=== PATIENT | female | born 1945 | race Caucasian/White ===

== ENCOUNTER 2016-12-10 11:39 | Inpatient (IN) | payer OTHER, MEDICARE ==
[2016-12-10] MEDS ORDERED: ONDANSETRON 4 MG/2 ML VIAL IVP ONE (12:06)
[2016-12-10] MEDS ORDERED: NS 1,000 ML IV ONE ×2 (12:06)
--- NOTE | 2016-12-10 12:10 | EDPHY ---
H & P Time Seen by Provider: 12/10/16 11:48 HPI/ROS: CHIEF COMPLAINT: Diarrhea HISTORY OF PRESENT ILLNESS: Patient is sent from Dr. Dunia Hernández office for possible recurrent Clostridium difficile. She was diagnosed earlier this year on November 21 and finished a complete course of metronidazole with some improvement, but over the last week has been having worsening diarrhea. Multiple episodes associated with severe abdominal cramping prior to going to the bathroom, with resolution of her abdominal cramping when she has diarrhea. No blood or melena. 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 REVIEW OF SYSTEMS: Eye: no change in vision ENT: no sore throat Cardiac: no chest pain or syncope Pulmonary: no cough or SOB Abdomen: HPI Musculoskeletal: no back pain Skin: Some skin lesions where they have been frozen off. Neuro: no headache Constitutional: no fever : no urinary symptoms A comprehensive 10 point review of systems is otherwise negative aside from elements mentioned in the history of present illness. PAST MEDICAL HISTORY: Includes hypothyroid. Fibromyalgia and squamous cell skin cancer, diverticulitis, hysterectomy. History and physical dated 05/17/2016 personally reviewed by myself. Social history: Nonsmoker, here with her . General Appearance: Alert and conversant, cooperative. Eyes: No scleral icterus. ENT, Mouth: Dry mucous membranes. Respiratory: Normal respiratory effort, breath sounds equal, lungs are clear to auscultation. Cardiovascular: Regular rate and rhythm. Gastrointestinal: Abdomen is soft and non tender. Neurological: Alert and oriented x3. Normally conversant. Face symmetric, normal movement and sensation in all extremities. Skin: Several superficial wounds on her lower extremities where skin lesions were removed but no cellulitis or erythema. Musculoskeletal: No peripheral edema and no joint swelling. Psychiatric: Not agitated. Emergency Department course/MDM: Normal saline 2 L IV for clinical dehydration, 4 mg IV Zofran for nausea. Stool for Clostridium difficile. Likely outpatient metronidazole failure, considered admission for IV hydration and oral vancomycin. Discussed with Dr. Duval at 1:06 p.m., oral vancomycin 125mg , IV fluids, Clostridium difficile testing. Smoking Status: Never smoked Constitutional: Initial Vital Signs Temperature (C) 37.3 C 12/10/16 11:42 Heart Rate 115 H 12/10/16 11:42 Respiratory Rate 16 12/10/16 11:42 Blood Pressure 135/64 H 12/10/16 11:42 O2 Sat (%) 91 L 12/10/16 11:42 O2 Delivery Mode Nasal Cannula O2 (L/minute) 2 Allergies/Adverse Reactions: codeine [Codeine] Allergy (Intermediate, Verified 05/17/16 15:04) NAUSEA Penicillins Allergy (Intermediate, Verified 05/17/16 13:41) Hives fish derived [Fish derived] Allergy (Unknown, Verified 05/17/16 15:04) Home Medications: Medication Instructions Recorded Ascorbic Acid [Vitamin C 500 mg 1,000 mg PO DAILY 05/17/16 (*)] Carboxymethylcellulose Sodium 1 drop EACHEYE HS 05/17/16 [Refresh Liquigel] Estriol Biest (8:2) 12mg/G Cream 2 earline TP DAILY 05/17/16 Herbals/Supplements -Info Only 1 ea PO DAILY 05/17/16 Levothyroxine [Synthroid 75 mcg 75 mcg PO DAILY06 05/17/16 (*)] Liothyronine Sodium [Cytomel 25 25 mcg PO DAILY 05/17/16 mcg (*)] Progesterone,Micronized 200 mg PO HS 05/17/16 [Progesterone] Mineral Oil/Petrolatum,White 3.5 gm OP HS 12/10/16 [Tears Naturale Pm Eye Oint] Medical Decision Making Differential Diagnosis: Differential for abdominal pain and diarrhea considered including but not limited to ischemic colitis, infectious diarrhea, Clostridium difficile toxin, GI bleed, viral gastroenteritis. - Data Points Laboratory Results: Laboratory Results 12/10/16 11:55 12/10/16 11:55 12/10/16 11:55 WBC 11.45 H 10^3/uL (3.80-9.50) RBC 4.57 10^6/uL (4.18-5.33) Hgb 13.8 g/dL (12.6-16.3) Hct 41.0 % (38.0-47.0) MCV 89.7 fL (81.5-99.8) MCH 30.2 pg (27.9-34.1) MCHC 33.7 g/dL (32.4-36.7) RDW 13.3 % (11.5-15.2) Plt Count 215 10^3/uL (150-400) MPV 9.6 fL (8.7-11.7) Neut % (Auto) 90.4 H % (39.3-74.2) Lymph % (Auto) 2.4 L % (15.0-45.0) [place] % (Auto) 6.6 % (4.5-13.0) Eos % (Auto) 0.1 L % (0.6-7.6) Baso % (Auto) 0.2 L % (0.3-1.7) Nucleat RBC Rel Count 0.0 % (0.0-0.2) Absolute Neuts (auto) 10.36 H 10^3/uL (1.70-6.50) Absolute Lymphs (auto) 0.27 L 10^3/uL (1.00-3.00) Absolute Monos (auto) 0.76 10^3/uL (0.30-0.80) Absolute Eos (auto) 0.01 L 10^3/uL (0.03-0.40) Absolute Basos (auto) 0.02 10^3/uL (0.02-0.10) Absolute Nucleated RBC 0.00 10^3/uL (0-0.01) Immature Gran % 0.3 % (0.0-1.1) Immature Gran # 0.03 10^3/uL (0.00-0.10) Sodium 140 mEq/L (134-144) Potassium 4.0 mEq/L (3.5-5.2) Chloride 103 mEq/L (97-110) Carbon Dioxide 25 mEq/l (22-31) Anion Gap 12 mEq/L (8-16) BUN 17 mg/dL (7-23) Creatinine 0.7 mg/dL (0.6-1.0) Estimated GFR > 60 Glucose 108 H mg/dL (70-100) Calcium 9.0 mg/dL (8.5-10.4) Medications Given: Discontinued Medications Sodium Chloride (Ns) 1,000 mls @ 0 mls/hr IV ONCE ONE PRN Reason: Wide Open Stop: 12/10/16 12:07 Last Admin: 12/10/16 12:10 Dose: 1,000 mls Sodium Chloride (Ns) 1,000 mls @ 0 mls/hr IV ONCE ONE PRN Reason: Wide Open Stop: 12/10/16 12:07 Last Admin: 12/10/16 12:35 Dose: 1,000 mls Ondansetron HCl (Zofran) 4 mg IVP EDNOW ONE Stop: 12/10/16 12:07 Last Admin: 12/10/16 12:13 Dose: 4 mg Vancomycin HCl (Vancocin Oral Liquid) 125 mg PO EDNOW ONE PRN Reason: Protocol Stop: 12/10/16 13:10 Last Admin: 12/10/16 13:45 Dose: 125 mg Departure - Departure Disposition: [facility] Acute Clinical Impression: Diarrhea Condition: Good
[2016-12-10 12:50] LABS: % IMMATURE GRANULYOCYTES 0.3 % (0.0-1.1); ABSOLUTE IMMATURE GRANULOCYTES 0.03 10^3/uL (0.00-0.10); ADD DIFF? NO; ADD MORPH? NO; ADD SCAN? NO; ATYPICAL LYMPHOCYTE FLAG 10 (0-99); FRAGMENT RBC FLAG 0 (0-99); HEMOGLOBIN 13.8 g/dL (12.6-16.3); LEFT SHIFT FLG 10 (0-99); LIPEMIA HEMOLYSIS FLAG 80 (0-99); MEAN CELL HEMOGLOBIN 30.2 pg (27.9-34.1); MEAN CELL HEMOGLOBIN CONCENTR. 33.7 g/dL (32.4-36.7); MEAN CELL VOLUME 89.7 fL (81.5-99.8); MEAN PLATELET VOLUME 9.6 fL (8.7-11.7); PLATELET CLUMPS FLAG 10 (0-99); PLATELET COUNT 215 10^3/uL (150-400); RED BLOOD CELL COUNT 4.57 10^6/uL (4.18-5.33); RED CELL DISTRIBUTION WIDTH 13.3 % (11.5-15.2)
[2016-12-10 13:06] LABS: ANION GAP 12 mEq/L (8-16); CARBON DIOXIDE 25 mEq/l (22-31); CHLORIDE 103 mEq/L (97-110); CREATININE 0.7 mg/dL (0.6-1.0); GLOMERULAR FILTRATION RATE > 60; GLUCOSE 108 mg/dL (70-100); SODIUM 140 mEq/L (134-144)
[2016-12-10] MEDS ORDERED: VANCOMYCIN 125 MG/2.5 ML UDL PO ONE (13:09)
[2016-12-10] MEDS ORDERED: PROMETHAZINE HCL 25 MG TAB PO PRN (13:32)
[2016-12-10] MEDS ORDERED: PROMETHAZINE HCL 25 MG/ML INJ IVP PRN (13:32)
[2016-12-10] MEDS ORDERED: ONDANSETRON 4 MG/2 ML VIAL IVP PRN (13:32)
[2016-12-10] MEDS ORDERED: ONDANSETRON DISINTEGRATING 4 MG TAB PO PRN (13:32)
[2016-12-10] MEDS ORDERED: NS 1,000 ML IV SCH (13:45)
--- NOTE | 2016-12-10 14:06 | PDGENHP ---
History and Physical - Chief Complaint Acute fever - History of Present Illness PCP: Dr. Cam Primary aids social worker: Dr. Hernández HPI: 71-year-old female presenting with acute fever characterized as a temperature of a 102 degrees F with associated loose comma frequent bowel movements as well as vomiting and abdominal cramping. The patient reports that her onset of symptoms was approximately the 21 of November and have been of persistent duration thereafter. Fevers were not present until the day of presentation but the other symptoms were. The patient reports that on 11/21/2016 , the patient had a positive C diff PCR and she was initiated on 10 days of metronidazole. The patient reports that she was adherent to this medication but did not particularly changed her diarrheal or abdominal cramping symptoms. Consequently, she sought medical attention at her gastroenterology office. She does report that the eye cramping seems to be reduced by bowel movements and the fever seemed to be alleviated by vomiting. She has otherwise not made any medication changes and she reports that her oral intake of solids and liquids has been reduced on the day of this presentation. History Information - Allergies/Home Medication List Allergies/Adverse Reactions: codeine [Codeine] Allergy (Intermediate, Verified 05/17/16 15:04) NAUSEA Penicillins Allergy (Intermediate, Verified 05/17/16 13:41) Hives fish derived [Fish derived] Allergy (Unknown, Verified 05/17/16 15:04) Home Medications: Ascorbic Acid [Vitamin C 500 mg (*)] 1,000 mg PO DAILY 05/17/16 [Last Taken ] Carboxymethylcellulose Sodium [Refresh Liquigel] 1 drop EACHEYE HS 05/17/16 [ Last Taken 12/09/16] Estriol Biest (8:2) 12mg/G Cream 2 earline TP DAILY 05/17/16 [Last Taken 12/09/16] Herbals/Supplements -Info Only 1 ea PO DAILY 05/17/16 [Last Taken 05/17/16] Levothyroxine [Synthroid 75 mcg (*)] 75 mcg PO DAILY06 05/17/16 [Last Taken ] Liothyronine Sodium [Cytomel 25 mcg (*)] 25 mcg PO DAILY 05/17/16 [Last Taken ] Progesterone,Micronized [Progesterone] 200 mg PO HS 05/17/16 [Last Taken ] Mineral Oil/Petrolatum,White [Tears Naturale Pm Eye Oint] 3.5 gm OP HS 12/10/16 [Last Taken 12/09/16] I have personally reviewed and updated: family history, medical history, social history, surgical history - Past Medical History Additional medical history: Hypothyroidism. Fibromyalgia. Skin cancer. Cellulitis in May 2016. C diff PCR positive on 11/21/2016 - Surgical History Reports: hysterectomy - Family History Additional family history: No recent sick family contacts, patient's mother had venous thromboembolism, her father coronary artery disease - Social History Smoking Status: Never smoked Alcohol Use: None Drug Use: None Additional social history: Normally independent in ADLs, lives with Review of Systems ROS: 10pt was reviewed & negative except for what was stated in HPI & below Constitutional: Reports: fever Gastrointestinal: Reports: vomitting, abdominal pain, diarrhea, nausea Physical Exam Temp Pulse Resp BP Pulse Ox 37.3 C 107 H 16 138/70 H 98 12/10/16 11:42 12/10/16 12:37 12/10/16 12:37 12/10/16 12:37 12/10/16 12:37 Constitutional: no apparent distress, not in pain, chronically ill appearing, No uncomfortable Eyes: PERRL, anicteric sclera, EOMI Ears, Nose, Mouth, Throat: hearing normal, ears appear normal, no oral mucosal ulcers, other (Tacky mucous membranes) Cardiovascular: tachycardia, No systolic murmur, No irregularly irregular, No edema Respiratory: no respiratory distress, no rales or rhonchi, clear to auscultation Gastrointestinal: soft, non-tender abdomen, no palpable masses, distension ( Mild to moderately), No normoactive bowel sounds (Hyperactive bowel sounds) Skin: other (Small skin lesions with mild surrounding erythema on the bilateral anterior shins without any confluent induration or ecchymoses) Neurologic: AAOx3, sensation intact bilaterally, No weakness Psychiatric: interacting appropriately, not anxious, not encephalopathic, thought process linear Lab Data & Imaging Review 12/10/16 11:55 12/10/16 11:55 WBC 11.45 10^3/uL (3.80-9.50) H 12/10/16 11:55 RBC 4.57 10^6/uL (4.18-5.33) 12/10/16 11:55 Hgb 13.8 g/dL (12.6-16.3) 12/10/16 11:55 Hct 41.0 % (38.0-47.0) 12/10/16 11:55 MCV 89.7 fL (81.5-99.8) 12/10/16 11:55 MCH 30.2 pg (27.9-34.1) 12/10/16 11:55 MCHC 33.7 g/dL (32.4-36.7) 12/10/16 11:55 RDW 13.3 % (11.5-15.2) 12/10/16 11:55 Plt Count 215 10^3/uL (150-400) 12/10/16 11:55 MPV 9.6 fL (8.7-11.7) 12/10/16 11:55 Neut % (Auto) 90.4 % (39.3-74.2) H 12/10/16 11:55 Lymph % (Auto) 2.4 % (15.0-45.0) L 12/10/16 11:55 [place] % (Auto) 6.6 % (4.5-13.0) 12/10/16 11:55 Eos % (Auto) 0.1 % (0.6-7.6) L 12/10/16 11:55 Baso % (Auto) 0.2 % (0.3-1.7) L 12/10/16 11:55 Nucleat RBC Rel Count 0.0 % (0.0-0.2) 12/10/16 11:55 Absolute Neuts (auto) 10.36 10^3/uL (1.70-6.50) H 12/10/16 11:55 Absolute Lymphs (auto) 0.27 10^3/uL (1.00-3.00) L 12/10/16 11:55 Absolute Monos (auto) 0.76 10^3/uL (0.30-0.80) 12/10/16 11:55 Absolute Eos (auto) 0.01 10^3/uL (0.03-0.40) L 12/10/16 11:55 Absolute Basos (auto) 0.02 10^3/uL (0.02-0.10) 12/10/16 11:55 Absolute Nucleated RBC 0.00 10^3/uL (0-0.01) 12/10/16 11:55 Immature Gran % 0.3 % (0.0-1.1) 12/10/16 11:55 Immature Gran # 0.03 10^3/uL (0.00-0.10) 12/10/16 11:55 Sodium 140 mEq/L (134-144) 12/10/16 11:55 Potassium 4.0 mEq/L (3.5-5.2) 12/10/16 11:55 Chloride 103 mEq/L (97-110) 12/10/16 11:55 Carbon Dioxide 25 mEq/l (22-31) 12/10/16 11:55 Anion Gap 12 mEq/L (8-16) 12/10/16 11:55 BUN 17 mg/dL (7-23) 12/10/16 11:55 Creatinine 0.7 mg/dL (0.6-1.0) 12/10/16 11:55 Estimated GFR > 60 12/10/16 11:55 Glucose 108 mg/dL (70-100) H 12/10/16 11:55 Calcium 9.0 mg/dL (8.5-10.4) 12/10/16 11:55 Assessment & Plan Assessment: 71-year-old female presenting with acute, persistent C difficile colitis and systemic inflammatory response syndrome Plan: 1. C difficile colitis. Acute, persistent, new problem this provider, further workup indicated. Evidenced by positive PCR on 11/21/2016 in the setting of abdominal symptoms and diarrhea -given the patient's symptoms persisted despite metronidazole therapy, I would consider this a persistent C difficile infection as opposed to a recurrent 1 -discussed with Selwyn Benitez in the emergency department, we both agree that initiation of vancomycin orally is appropriate at this time, 125 mg q.6 -patient will require 2 weeks of therapy -recommend Infectious Disease consultation to help facilitate continuity of care as well as management decisions, id consult placed -recommend improving oral intake of solids and liquids -as needed antiemetics ordered -continue IV fluids -get repeat CDiff PCR to ensure that symptoms continue to be attributable to this process 2. Systemic inflammatory response syndrome. Evidenced by a reported fever of 102 degrees F in the outpatient setting plus tachycardia, most likely secondary to a combination of hypovolemia and persisted infxn -continue IV fluids -if patient becomes hypotensive or is persistently febrile, will check lactic acid level and declare this to be sepsis 3. Fibromyalgia. Chronic, continue patient's home medications once reconciled 4. Skin ulcers. Reviewed outside records including 09/11/2016 [facility] note by Dr. Moris Bauman, reported that patient would not be on subsequent antibiotics but should be treated for possible contact dermatitis -no evidence of worsening wounds Diet. Regular with smoothies supplements Code. Full Disposition. Anticipated discharge is 12/11/2016, pending further workup and treatment of conditions outlined above
[2016-12-10] MEDS: ACETAMINOPHEN 325 MG TAB PO PRN ×2 (16:14→20:08)
[2016-12-10] MEDS: PROGESTERONE,MICR 100 MG CAP PO SCH (20:08)
[2016-12-10] MEDS: CARBOXYMETHYLCELLULOSE SODIUM EACHEYE SCH (20:19)
[2016-12-10] MEDS: PETROLAT,WHT/MIN OIL/SOD CHL 3.5 GM OPHT.OINT EACHEYE SCH (22:06)
[2016-12-11] MEDS: ACETAMINOPHEN 325 MG TAB PO PRN ×2 (00:30→21:59)
[2016-12-11 05:05] LABS: % IMMATURE GRANULYOCYTES 0.3 % (0.0-1.1); ABSOLUTE IMMATURE GRANULOCYTES 0.02 10^3/uL (0.00-0.10); ADD DIFF? NO; ADD MORPH? NO; ADD SCAN? NO; ATYPICAL LYMPHOCYTE FLAG 0 (0-99); FRAGMENT RBC FLAG 0 (0-99); HEMATOCRIT 32.6 % (38.0-47.0); HEMOGLOBIN 11.1 g/dL (12.6-16.3); LEFT SHIFT FLG 50 (0-99); LIPEMIA HEMOLYSIS FLAG 90 (0-99); MEAN CELL HEMOGLOBIN 31.4 pg (27.9-34.1); MEAN CELL VOLUME 92.4 fL (81.5-99.8); MEAN PLATELET VOLUME 9.6 fL (8.7-11.7); PLATELET CLUMPS FLAG 10 (0-99); PLATELET COUNT 155 10^3/uL (150-400); RED BLOOD CELL COUNT 3.53 10^6/uL (4.18-5.33); RED CELL DISTRIBUTION WIDTH 13.5 % (11.5-15.2)
[2016-12-11 05:17] LABS: ALANINE AMINOTRANSFERASE 28 IU/L (9-52); ALBUMIN 2.4 g/dL (3.5-5.0); ALKALINE PHOSPHATASE 41 IU/L (38-126); ANION GAP 4 mEq/L (8-16); ASPARTATE AMINOTRANSFERASE 16 IU/L (14-46); BILIRUBIN,TOTAL 0.7 mg/dL (0.1-1.4); CALCIUM 7.6 mg/dL (8.5-10.4); CARBON DIOXIDE 25 mEq/l (22-31); CHLORIDE 112 mEq/L (97-110); CREATININE 0.6 mg/dL (0.6-1.0); GLOMERULAR FILTRATION RATE > 60; GLUCOSE 102 mg/dL (70-100); POTASSIUM 3.4 mEq/L (3.5-5.2); SODIUM 141 mEq/L (134-144); TOTAL PROTEIN 4.4 g/dL (6.3-8.2)
[2016-12-11] MEDS: ASCORBIC ACID 500 MG TAB PO SCH (08:11)
[2016-12-11] MEDS: ENOXAPARIN 40 MG/0.4 ML SYR SC SCH (08:14)
[2016-12-11] MEDS: LEVOTHYROXINE 75 MCG TAB PO SCH (08:14)
[2016-12-11] MEDS: [UNRECOGNIZED DRUG - OTHER] TP SCH (08:34)
[2016-12-11] MEDS ORDERED: Herbals/Supplements -Info Only PO SCH (09:00)
[2016-12-11] MEDS: LIOTHYRONINE SODIUM 25 MCG TAB PO SCH (09:06)
--- NOTE | 2016-12-11 10:36 | HOSPPROG ---
Hospitalist Progress Note Assessment/Plan: #CDIFF COLITIS #DEHYDRATION #FIBROMYALGIA #SKIN ULCERS PLAN: VANCOMYCIN 125 MG FOUR TIMES A DAY IVF WILL LIKELY DISCHARGE LATER TODAY VS TOMORROW LOVENOX FOR DVT PROPHYLAXIS S: STILL WITH DIARRHEA, SOME IMPROVEMENT ONLY RECEIVED ONE DOSE OF VANC IN THE ED, WAS NOT ORDERED ON THE FLOOR O: VSS NAD AAOX3 MUCUS MEMBRANES DRY RRR CTAB S/NT/ND NO EDEMA LABS: REVIEWED + C-DIFF Objective: Vital Signs Temp Pulse Resp BP Pulse Ox 37.0 C 72 16 117/59 L 98 12/11/16 07:12 12/11/16 07:12 12/11/16 07:12 12/11/16 07:12 12/11/16 07:12 Laboratory Results 12/11/16 04:34 12/11/16 04:34 12/10/16 12/11/16 12/12/16 05:59 05:59 05:59 Intake Total 4713 Output Total 300 Balance 4413 ICD10 Worksheet Patient Problems: Problems Problem Status Diagnosed Diarrhea Acute C. difficile diarrhea Acute 12/10/16 Sepsis Acute
[2016-12-11] MEDS: VANCOMYCIN 125 MG/2.5 ML UDL PO SCH ×3 (10:39→21:15)
[2016-12-11] MEDS ORDERED: NS 1,000 ML IV SCH (10:45)
[2016-12-11] MEDS ORDERED: VANCOMYCIN 125 MG/2.5 ML UDL PO SCH (12:00)
[2016-12-11] MEDS: PROGESTERONE,MICR 100 MG CAP PO SCH (21:15)
[2016-12-11] MEDS: PETROLAT,WHT/MIN OIL/SOD CHL 3.5 GM OPHT.OINT EACHEYE SCH (22:00)
[2016-12-11] MEDS: CARBOXYMETHYLCELLULOSE SODIUM EACHEYE SCH (22:00)
[2016-12-11 23:35] VITALS: O2SAT 93
[2016-12-12 04:26] VITALS: TEMP 98.1
[2016-12-12] MEDS: LEVOTHYROXINE 75 MCG TAB PO SCH (05:52)
[2016-12-12] MEDS: VANCOMYCIN 125 MG/2.5 ML UDL PO SCH (05:52)
[2016-12-12 07:52] VITALS: BP 128/79; PULSE 70; RESP 19
[2016-12-12] MEDS: LIOTHYRONINE SODIUM 25 MCG TAB PO SCH (09:02)
[2016-12-12] MEDS: ASCORBIC ACID 500 MG TAB PO SCH (09:02)
[2016-12-12] MEDS: ENOXAPARIN 40 MG/0.4 ML SYR SC SCH (09:22)
[2016-12-12] MEDS: [UNRECOGNIZED DRUG - OTHER] TP SCH (09:23)
--- NOTE | 2016-12-12 10:45 | PDDCSUM ---
Discharge Summary Discharge Summary: DISCHARGE SUMMARY FOLLOW-UP ITEMS: Outpatient infectious disease appointment next week DATE OF ADMISSION: 12/10/2016 DATE OF DISCHARGE: 12/12/2016 DISCHARGE DIAGNOSES: 1. Persistent C difficile diarrhea 2. Systemic inflammatory response syndrome 3. Fibromyalgia CONSULTATIONS: None PROCEDURES / IMAGING: None CHIEF COMPLAINT: Persistent diarrhea SUBJECTIVE: Diarrhea has been lessening, less frequent, no abdominal pain PHYSICAL EXAM ON DISCHARGE: Systolic blood pressure 120, heart rate in the 70s, afebrile overnight, satting well on room air, bowel movement x4/24 hours, abdomen is soft mildly distended, nontender LABS ON DISCHARGE: HOSPITAL COURSE BY PROBLEM: 1. Persistent C difficile diarrhea. The patient presented with persistent C difficile diarrhea which was most likely not completely treated with 10 days of oral metronidazole received in the outpatient setting. The patient's diarrhea persisted and C diff PCR remained positive. She was initiated on oral vancomycin 125 mg and her diarrhea consistency became more formed, less frequent , abdominal distension lessened. Patient will be continued on a total of 14 days of oral vancomycin 125 4 times daily. She will follow up with either Dr. Bauman or Dr. Hernández next week. 2. Systemic inflammatory response syndrome. Evidenced by reported fever of 102 degrees F at home as well as tachycardia, most likely secondary to combination of hypovolemia as well as persistent infection. Patient received IV fluids and her tachycardia resolved. She remained afebrile during this hospitalization. 3. Fibromyalgia. Chronic, patient was continued on her home medications. DISCHARGE MEDICATIONS: Please see official discharge medication reconciliation sheet in chart , vancomycin 125 q.6 hours times 13 subsequent days. DISCHARGE INSTRUCTIONS: Patient will follow up with either infectious Disease Gastroenterology next week. TIME SPENT: Greater than 30 minutes were spent on direct patient care, as well as discharge planning and preparation.
== END 2016-12-12 10:46 | disposition home or self-care (01) | DRG 372 ==
LOC: INTOOBSV 13:09 → F3E 15:05 → OBSVTOIN 12-11 11:39
PROVIDERS: ADMIT Internal Medicine; ATTEND Internal Medicine
DX: A04.7 Enterocolitis due to Clostridium difficile (principal); R65.10 Systemic inflammatory response syndrome (SIRS) of non-infectious origin without acute organ dysfunction; M79.7 Fibromyalgia; E86.1 Hypovolemia; E86.0 Dehydration; E03.9 Hypothyroidism, unspecified; L98.499 Non-pressure chronic ulcer of skin of other sites with unspecified severity; Z85.820 Personal history of malignant melanoma of skin; Z88.0 Allergy status to penicillin
CPT/HCPCS: 96374; 97161-GP; G0378; G8978-GP-CJ; G8979-GP-CI; J1650; J2405

== ENCOUNTER → 2017-05-21 | Outpatient (CLI) | payer OTHER, MEDICARE | LOC: BHFA 14:00 | PROVIDERS: ATTEND Internal Medicine Cardiovascular Disease | DX: I25.10 Atherosclerotic heart disease of native coronary artery without angina pectoris (principal); I10 Essential (primary) hypertension; I73.9 Peripheral vascular disease, unspecified | CPT/HCPCS: 78452; 93017; A9500; J2785 ==

== ENCOUNTER → 2017-05-28 | Outpatient (CLI) | payer OTHER, MEDICARE | LOC: BHFA 14:00 | PROVIDERS: ATTEND Internal Medicine Cardiovascular Disease | DX: I25.10 Atherosclerotic heart disease of native coronary artery without angina pectoris (principal); I73.9 Peripheral vascular disease, unspecified ==

== ENCOUNTER → 2017-08-13 | Outpatient (CLI) | payer OTHER, MEDICARE ==
[~2017-08-13] MED LIST: IOPAMIDOL (ISOVUE 370) 100 ML BTL IV ONE
== END ==
LOC: FIMAGING 12:33
PROVIDERS: ATTEND Internal Medicine Cardiovascular Disease
DX: Q27.32 Arteriovenous malformation of vessel of lower limb (principal); K86.89 Other specified diseases of pancreas; I73.9 Peripheral vascular disease, unspecified; Z91.041 Radiographic dye allergy status
CPT/HCPCS: 75635; Q9967